=== PATIENT | female | born 1960 | race Caucasian/White ===

== ENCOUNTER 2023-11-20 14:00 | Emergency (ER) | payer SELFPAY ==
[2023-11-20 14:03] VITALS: BP 134/84; PULSE 57; RESP 16; TEMP 36.6; O2SAT 98
--- NOTE | 2023-11-20 14:05 | XRR_ITS ---
PROCEDURE INFORMATION: Exam: XR Chest Exam date and time: 11/20/2023 4:03 PM Age: 63 years old Clinical indication: Chest pressure; Patient HX: C/O this morning chest pain that feels like a rubber band all the way across and pain in her back. SOB. Nausea. Has not been feeling well all week. HX brain aneurysms with clips. PT reports that she did have an anxiety attack last week. ; Additional info: Cp TECHNIQUE: Imaging protocol: Radiologic exam of the chest. Views: 1 view. COMPARISON: No relevant prior studies available. FINDINGS: Lungs: Unremarkable. No consolidation. Pleural spaces: Unremarkable. No pleural effusion. No pneumothorax. Heart/Mediastinum: Unremarkable. No cardiomegaly. Bones/joints: Unremarkable. XR/XR chest 1V portable [id number] IMPRESSION: No acute findings.
--- NOTE | 2023-11-20 14:06 | ECG_ITS ---
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 Measurements Intervals [place] Rate: 54 P: 59 RI: 183 QRS: 51 QRSD: 80 T: 53 QT: 400 QTc: 381 Interpretive Statements SINUS BRADYCARDIA LOW QRS VOLTAGE IN PRECORDIAL LEADS [QRS DEFLECTION < 1.0 mV IN CHEST LEADS] MINIMAL ST DEPRESSION [0.025+ mV ST DEPRESSION] No previous ECG available for comparison Electronically Signed On 11-20-2023 19:18:49 CDT by Hudson Babcock M.D. [id number]
[2023-11-20 14:49] LABS: Basophils % 0.4 %; Eosinophils # 0.4 10^3/uL (0.0-0.8); Eosinophils % 3.5 %; Hematocrit 40.7 % (36-47); Lymphocytes # 3.2 10^3/uL (0.8-4.8); Lymphocytes % 29.4 %; Mean Corpuscular HGB Conc 34.9 g/dL (30-55); Mean Corpuscular Hemoglobin 32.3 pg (27-33); Mean Corpuscular Volume 92.7 fl (85-98); Mean Platelet Volume 10.8 fL (7.4-10.4); Monocytes # 0.8 10^3/uL (0.2-0.9); Monocytes % 7.3 %; Neutrophils # 6.45 10^3/uL (1.8-7.7); Neutrophils % 59.1 %; Nucleated Red Blood Cells % 0 %; Platelet Count 294 10^3/cmm (157-399); Red Blood Count 4.39 10^6/uL (3.85-5.65); Red Cell Distribution Width 12.1 % (12.1-15.1); White Blood Count 10.89 10^3/uL (3.29-11.43)
[2023-11-20 15:10] LABS: Alanine Aminotransferase 14 U/L (0-33); Alkaline Phosphatase 95 U/L (35-105); Anion Gap 13.8 (5-19); Aspartate Amino Transferase 13 U/L (0-32); Blood Urea Nitrogen 13 mg/dL (8-23); Carbon Dioxide 27 mmol/L (22-29); Chloride 103 mmol/L (98-107); Globulin 2.6 g/dL (1.3-4.6); Glomerular Filtration Rate 161.2 mL/min (90-130); Glucose 97 mg/dL (65-115); Lipase 18 U/L (13-60); Osmolality Calculated 290 mOsm/kg (285-295); Potassium 3.8 mmol/L (3.5-5.1); Sodium 140 mmol/L (136-145); Total Bilirubin 0.2 mg/dL (0.15-1.2); Total Protein 6.6 g/dL (6.6-8.7)
[2023-11-20 15:12] LABS: Troponin(5th) Baseline < 6 ng/L (0-10)
[2023-11-20 15:17] LABS: Creatinine Clr Calc Pharmacy 164.1486
[2023-11-20 15:59] VITALS: BP 132/64; PULSE 53; O2SAT 96
[2023-11-20 16:00] VITALS: BP 130/65; PULSE 46; O2SAT 96
--- NOTE | 2023-11-20 16:06 | ECG_ITS ---
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 Measurements Intervals [place] Rate: 46 P: 62 MN: 207 QRS: 50 QRSD: 96 T: 57 QT: 451 QTc: 395 Interpretive Statements SINUS BRADYCARDIA LOW QRS VOLTAGE IN PRECORDIAL LEADS [QRS DEFLECTION < 1.0 mV IN CHEST LEADS] NONSPECIFIC ST & T-WAVE ABNORMALITY Compared to ECG 11/20/2023 14:01:05 T-wave abnormality now present ST (T wave) deviation no longer present Electronically Signed On 11-20-2023 19:25:59 CDT by Hudson Babcock M.D. [id number]
[2023-11-20 16:30] VITALS: BP 122/77; PULSE 59; RESP 17; O2SAT 97
--- NOTE | 2023-11-20 16:37 | ED_ITS ---
HPI - Chest Pain 2 General: Chief Complaint: Chest Pain Stated Complaint: chest pain, SOB Time Seen by Provider: 11/20/23 15:45 Source: patient Mode of arrival: ambulatory Limitations: no limitations History of Present Illness: 63-year-old female states she has not fe lt well has had some fatigue over the last week states over the last 2 days she has had a bandlike pain across to her chest. She denies any worse improved factors she rates the pain a 2 out of 10 currently she denies any shortness of breath or fever. She denies any history of heart disease. Patient is a smoker. Associated symptoms: Deny abdominal pain, dyspnea, fever(s), nausea or vomiting Review of Systems 2 Const: Denies: fever(s), chills, body aches or change in appetite ENMT: Denies: throat pain or dental pain Card: Reports: chest pain Resp: Denies: dyspnea GI: Denies: abdominal pain, nausea, vomiting or diarrhea Musc: Denies: neck pain or back pain Skin/Breast: Denies: rash Neuro: Denies: headache(s) Physical Exam 2 Const: COMMON NORMALS: no acute distress, patient oriented x3 and healthy appearing HENMT: COMMON NORMALS: normocephalic and atraumatic HEAD & SCALP: n ormocephalic and atraumatic Eye: COMMON NORMALS: Equal, round and reactive pupils present and EOMs intact bilaterally PUPIL: Yes Equal, round and reactive pupils present Neck/C-Spine: COMMON NORMALS: full ROM and supple Chest: COMMONS NORMALS: normal inspection of the chest Resp: COMMON NORMALS: normal respiratory effort, No retractions, No use of accessory muscles and clear to auscultation bilaterally AUSCULTATION: clear to auscultation bilaterally Cardio: COMMON NORMALS: regular rhythm and No murmurs present (Cardio) R ATE: bradycardic RHYTHM: regular rhythm GI: COMMON NORMALS: Normal to inspection, nondistended, normoactive bowel sounds present, Soft to palpation, non-tender and no masses PALPATION: Yes Soft to palpation Extremity: COMMON NORMALS: normal to inspection and full ROM Neuro: COMMON NORMALS: patient oriented x3, moves all extremities and no focal motor deficits Psych: COMMON NORMALS: mental status grossly normal, Normal thought process present and cooperative THOUGHT PROCESS: Normal thought process present Skin: COMMON NORMALS: no rashes or lesions noted and no wounds GENERAL SKIN EXAM: no rashes or lesions noted Course 2 Vital Signs: Vital signs: Vital Signs Temperature 97.9 F 11/20/23 14:03 Pulse Rate 59 L 11/20/23 16:30 Respiratory Rate 17 11/20/23 16:30 Blood Pressure 122/77 11/20/23 16:30 Pulse Oximetry 97 11/20/23 16:30 Oxygen Delivery Me thod Room Air 11/20/23 16:30 MDM - Chest Pain Medical Decision Making Patient presents here with chest pains atypical in nature she is well-appearing here she has no signs of aortic dissection or pulmonary embolism chest x-ray EKGs are normal troponins here are negative no signs of ACS we will get her follow-up with a primary care doctor she is return if worsening she understands agrees to plan. Medical Records I reviewed the patient's medical records. Lab Data I reviewed the patient's lab results. 11/20/23 14:37 11/20/23 14:37 Radiology Impressions Chest X-Ray 11/20/23 14:05 IMPRESSION: No acute findings. Laboratory Results WBC 10.89 10^3/uL (3.29-11.43) 11/20/23 14:37 RBC 4.39 10^6/uL (3.85-5.65) 11/20/23 14:37 Hgb 14.20 g/dL (11.27-16.99) 11/20/23 14:37 Hct 40.7 % (36-47) 11/20/23 14:37 MCV 92.7 fl (85-98) 11/20/23 14:37 MCH 32.3 pg (27-33) 11/20/23 14:37 MCHC 34.9 g/dL (30-55) 11/20/23 14:37 RDW 12.1 % (12.1-15.1) 11/20/23 14:37 Plt Count 294 10^3/cmm (157-399) 11/20/23 14:37 MPV 10.8 fL (7.4-10.4) H 11/20/23 14:37 Neut % (Auto) 59.1 % 11/20/23 14:37 Lymph % (Auto) 29.4 % 11/20/23 14:37 Phelps % (Auto) 7.3 % 11/20/23 14:37 Eos % (Auto) 3.5 % 11/20/23 14:37 Baso % (Auto) 0.4 % 11/20/23 14:37 Neut # (Auto) 6.45 10^3/uL (1.8-7.7) 11/20/23 14:37 Lymph # (Auto) 3.2 10^3/uL (0.8-4.8) 11/20/23 14:37 Phelps # (Auto) 0.8 10^3/uL (0.2-0.9) 11/20/23 14:37 Eos # (Auto) 0.4 10^3/uL (0.0-0.8) 11/20/23 14:37 Baso # (Auto) 0.0 10^3/uL (0.0-0.1) 11/20/23 14:37 Nucleated RBC % (auto) 0 % 11/20/23 14:37 Nucleated RBCs # 0.0 /100WBC 11/20/23 14:37 Sodium 140 mmol/L (136-145) 11/20/23 14:37 Potassium 3.8 mmol/L (3.5-5.1) 11/20/23 14:37 Chloride 103 mmol/L (98-107) 11/20/23 14:37 Carbon Dioxide 27 mmol/L (22-29) 11/20/23 14:37 Anion Gap 13.8 (5-19) 11/20/23 14:37 BUN 13 mg/dL (8-23) 11/20/23 14:37 Creatinine 0.4 mg/dL (0.5-0.9) L 11/20/23 14:37 GFR Calculation 161.2 mL/min (90-130) H 11/20/23 14:37 Glucose 97 mg/dL (65-115) 11/20/23 14:37 Calculated Osmolality 290 mOsm/kg (285-295) 11/20/23 14:37 Calcium 9.0 mg/dL (8.5-10.5) 11/20/23 14:37 Total Bilirubin 0.2 mg/dL (0.15-1.2) 11/20/23 14:37 AST 13 U/L (0-32) 11/20/23 14:37 ALT 14 U/L (0-33) 11/20/23 14:37 Alkaline Phosphatase 95 U/L (35-105) 11/20/23 14:37 Troponin T Baseline < 6 ng/L (0-10) 11/20/23 14:37 Troponin T 120 Minute 6.00 ng/L (0-10) 11/20/23 16:18 Delta Troponin T 0.37665 ABS# (0-10) 11/20/23 16:18 Total Protein 6.6 g/dL (6.6-8.7) 11/20/23 14:37 Albumin 4.0 g/dL (3.5-5.2) 11/20/23 14:37 Globulin 2.6 g/dL (1.3-4.6) 11/20/23 14:37 Lipase 18 U/L (13-60) 11/20/23 14:37 All radiology interpretation(s) finalized by discharge EKG Data EKG 1: I personally reviewed and interpreted this EKG as follows: EKG interpretation date: 11/20/23 EKG interpretation time: 14:01 Interpretation: sinus lisa hr [address] elevation qrs 80 qtc 386 EKG 2: I personally reviewed and interpreted this EKG as follows: EKG interpretation date: 11/20/23 EKG interpretation time: 16:08 Interpretation: sinus lisa hr [address] elevation qrs 96 qtc 408 Discharge Plan Discharge Patient Disposition: Home Clinical Impression: Chest pain Condition: Stable Discharge Orders: Discharge ED (Routine); Ordered 11/20/23 Ordered By: Eliana Melendez Discharge Diet: Advance as tolerated Discharge Activity: Resume usual activity Patient Instructions: Chest Pain (ED) Coding Level of Care Code ED Commercial Carpenter for Dwayne Clark
[2023-11-20 16:45] LABS: Troponin 5 2HR Delta 0.00001 ABS# (0-10)
[2023-11-20 17:00] VITALS: BP 107/64; PULSE 50; RESP 14; O2SAT 97
[2023-11-20 17:17] VITALS: BP 107/64; PULSE 51; RESP 16; O2SAT 96
--- NOTE | 2023-11-22 10:07 | DCPLANNER ---
Message sent to [facility] to establish a primary care.
== END 2023-11-20 17:18 | disposition home or self-care (01) ==
PROVIDERS: Emergency Provider Emergency Medicine
DX: R07.9 Chest pain, unspecified (principal); R00.1 Bradycardia, unspecified
CPT/HCPCS: 36415; 71045; 80053; 83690; 84484; 85025; 93005; 99285